=== PATIENT | female | born 1990 | race Caucasian/White ===

== ENCOUNTER 2016-02-29 08:00 | Outpatient (CLI) | END 2016-02-29 08:01 | disposition home or self-care (01) ==

== ENCOUNTER 2016-04-03 07:33 | Outpatient (CLI) | payer BC | END 2016-04-03 07:34 | disposition home or self-care (01) | DX: Z34.82 Encounter for supervision of other normal pregnancy, second trimester (principal) ==

== ENCOUNTER 2016-05-19 08:06 | Outpatient (CLI) | payer BC | END 2016-05-19 08:07 | disposition home or self-care (01) | DX: Z36 Encounter for antenatal screening of mother (principal) ==

== ENCOUNTER 2016-05-29 07:52 | Outpatient (CLI) | payer BC | END 2016-05-29 07:53 | disposition home or self-care (01) | DX: R73.02 Impaired glucose tolerance (oral) (principal) ==

== ENCOUNTER 2016-06-23 09:00 | Outpatient (CLI) | payer BC | END 2016-06-23 09:01 | disposition home or self-care (01) | DX: Z71.3 Dietary counseling and surveillance (principal); O24.410 Gestational diabetes mellitus in pregnancy, diet controlled; Z68.26 Body mass index [BMI] 26.0-26.9, adult ==

== ENCOUNTER 2016-07-25 05:08 | Outpatient (CLI) | payer BC ==
[2016-07-25 05:24] VITALS: BP 116/78
== END 2016-07-25 06:00 | disposition home or self-care (01) ==
LOC: WFO 05:08 → OB 05:09 → WFO 06:00
PROVIDERS: ATTEND Obstetrics & Gynecology
DX: Z34.03 Encounter for supervision of normal first pregnancy, third trimester (principal); Z36 Encounter for antenatal screening of mother
CPT/HCPCS: 87081; 87797; 99212

== ENCOUNTER 2016-07-25 15:00 | Outpatient (CLI) | payer BC | END 2016-07-25 15:01 | disposition home or self-care (01) | LOC: LAB.R 15:00 | PROVIDERS: ATTEND Obstetrics & Gynecology | DX: Z36 Encounter for antenatal screening of mother (principal) | CPT/HCPCS: 87081; 87797 ==

== ENCOUNTER 2016-08-14 10:47 | Outpatient (CLI) | payer BC ==
[2016-08-14 13:35] LABS: HEMOGLOBIN A1C 0.41 g/dL
== END 2016-08-14 10:48 | disposition home or self-care (01) ==
LOC: LAB 10:47
PROVIDERS: ATTEND Obstetrics & Gynecology
DX: O24.410 Gestational diabetes mellitus in pregnancy, diet controlled (principal)
CPT/HCPCS: 36415; 83036

== ENCOUNTER 2016-08-18 07:23 | Outpatient (CLI) | payer BC ==
[2016-08-18 09:59] VITALS: BP 111/69
== END 2016-08-18 10:35 | disposition home or self-care (01) ==
LOC: WFO 07:23 → OB 07:26 → WFO 10:35
PROVIDERS: ATTEND Obstetrics & Gynecology
DX: Z34.83 Encounter for supervision of other normal pregnancy, third trimester (principal)
CPT/HCPCS: 99213

== ENCOUNTER 2016-08-23 07:30 | Inpatient (IN) | payer BC ==
[2016-08-23] MEDS ORDERED: fentaNYL 100 MCG/2 ML VIAL IVP PRN (08:07)
[2016-08-23] MEDS ORDERED: SODIUM CHLORIDE FLUSH 0.9% 10 ML SYRINGE IVP PRN (08:07)
[2016-08-23] MEDS ORDERED: ACETAMINOPHEN 325 MG TABLET PO PRN (08:07)
[2016-08-23] MEDS ORDERED: ONDANSETRON 4 MG/2 ML VIAL IVP PRN ×2 (08:07→15:06)
[2016-08-23] MEDS ORDERED: ROPIVACAINE 0.2% PF 20 ML AMPULE SUBQ ONE (08:45)
[2016-08-23] MEDS: LACTATED RINGERS 1,000 ML IV SCH ×2 (08:57→14:53)
[2016-08-23 09:00] LABS: BASOPHILS # (AUTO) 0.1 10^3/uL (0.0-0.1); EOSINOPHILS # (AUTO) 0.3 10^3/uL (0.0-0.7); EOSINOPHILS % (AUTO) 3.7 %; HCT - HEMATOCRIT 31.8 % (37.0-47.0); HGB - HEMOGLOBIN 10.8 g/dL (12.0-16.0); LYMPHOCYTES # (AUTO) 1.9 10^3/uL (1.5-3.5); LYMPHOCYTES % (AUTO) 20.9 %; MEAN CORPUSCULAR HEMOGLOBIN 30.7 pg (27.0-31.0); MEAN CORPUSCULAR HGB CONC 33.9 g/dL (32.0-36.0); MEAN CORPUSCULAR VOLUME 90.4 fL (81.0-99.0); MEAN PLATELET VOLUME 7.3 fL (7.9-10.8); MONOCYTES # (AUTO) 0.6 10^3/uL (0.0-1.0); NEUTROPHILS % (AUTO) 67.4 %; RED BLOOD COUNT 3.52 10^6/uL (4.20-5.40); RED CELL DISTRIBUTION WIDTH 13.9 % (12.0-15.0); UNCORRECTED WHITE BLOOD COUNT 8.9 x10^3/uL; WHITE BLOOD COUNT 8.9 x10^3/uL (4.8-10.8)
[2016-08-23] MEDS ORDERED: OXYTOCIN/LACTATED RINGERS 250 ML IV SCH (10:00)
--- NOTE | 2016-08-23 11:07 | PROVIDER PROGRESS NOTE ---
Labor Progress Note - Instructions [place]/Slash: -Left hand click circles element as positive or present. -Right hand click slashes element as negative or not present. - Uterine Monitoring Uterine Monitoring Mode: positive: External toco Contraction Frequency (min/apart): Q6 min Contraction Intensity: positive: Mild to moderate Uterine Resting Tone: positive: Soft - Monitoring Heart Rate Baseline: 145 Heart Rate Variability: positive: Moderate (6-25 bmp) Accelerations: positive: Present, 10x10 (=/32 wks) Decelerations: positive: None Strip Review: positive: Category I - Vaginal Exam Dilation (in cm): 5 Effacement (%): 50% Station: positive: 0 Cervical Position: positive: Posterior - Labor Progress Note Labor Progress Note/Additional Text: AROM Clear fluid; Contractions inadequate and will start Pitocin Augmentation
--- NOTE | 2016-08-23 13:24 | PROVIDER PROGRESS NOTE ---
Labor Progress Note - Instructions [place]/Slash: -Left hand click circles element as positive or present. -Right hand click slashes element as negative or not present. - Uterine Monitoring Uterine Monitoring Mode: positive: External toco Contraction Frequency (min/apart): Q3-4min Contraction Intensity: positive: Moderate Uterine Resting Tone: positive: Soft - Monitoring Monitor Mode: positive: External ultrasound Heart Rate Baseline: 125 Heart Rate Variability: positive: Moderate (6-25 bmp) Accelerations: positive: Present, 15x15 Decelerations: positive: None Strip Review: positive: Category I - Vaginal Exam Dilation (in cm): 5 Effacement (%): 100% Station: positive: 1 Cervical Position: positive: Anterior - Labor Progress Note Labor Progress Note/Additional Text: Approaching Active Phase
[2016-08-23] MEDS ORDERED: SODIUM CHLORIDE FLUSH 0.9% 10 ML SYRINGE IVP SCH (14:00)
[2016-08-23] MEDS ORDERED: fent/BUPIV 2 MCG/0.125% 250 ML EP ONE (14:46)
[2016-08-23] MEDS ORDERED: NALBUPHINE 20 MG/ML AMP IVP PRN (15:06)
[2016-08-23] MEDS ORDERED: NALOXONE 0.4 MG/ML VIAL IVP PRN (15:06)
[2016-08-23] MEDS ORDERED: ePHEDrine 50 MG/ML AMP IVP PRN (15:06)
[2016-08-23] MEDS ORDERED: diphenhydrAMINE INJ 50 MG/ML VIAL IVP PRN (15:06)
[2016-08-23] MEDS ORDERED: LACTATED RINGERS 500 ML IV ONE (15:06)
[2016-08-23] MEDS ORDERED: METOCLOPRAMIDE 10 MG/2 ML VIAL IVP PRN (15:06)
[2016-08-23] MEDS ORDERED: fent/BUPIV 2 MCG/0.125% 250 ML EP PRN (15:06)
[2016-08-23] MEDS ORDERED: LIDOCAINE 1% 50 ML MDV ONE (16:08)
[2016-08-23] MEDS ORDERED: MINERAL OIL LIGHT 10 ML MC ONE (16:08)
--- NOTE | 2016-08-23 17:50 | HISTORY & PHYSICAL EXAMINATION ---
DATE OF ADMISSION: 08/23/2016 DIAGNOSES: 1. A 40-week 3 day gestation. 2. Planned induction. 3. Gestational diabetes (diet controlled, class A1 diabetes in ). 4. Rubella nonimmune. The patient is a 26-year-old prima at 40 weeks and 3 days gestation based on early ultrasound who has had regular care at the [facility] [place]. She is a known gestational diabetic and has followed diet and exercise protocol and maintained good blood glucose control. Her fasting and postprandial values are consistently on target Fasting below 90 , 2h PP less than 120), as well as her hemoglobin A1c. She was seen yesterday by Dr. Andres and found to have an inducible cervix approximately 3 cm dilated and well effaced. Basic obstetric labs, blood type A positive, antibody screen negative, GC, chlamydia negative. Quad screen negative. Hepatitis B surface antigen negative , HIV negative. Urinalysis negative. RPR negative. Glucola challenge elevated 1 of 52; 3-hour GTT elevated (86, 201, 177, 125). GBS negative. Reviewed chart. PAST MEDICAL HISTORY: History of benign heart murmur, anxiety secondary to college hepatitis B vaccine. No abnormal Pap or STD history. PAST SURGICAL HISTORY: None. MEDICATIONS: vitamins and iron. Diabetic testing supplies. FAMILY HISTORY: No history of congenital anomalies, unexplained retardation or inheritable diseases. SOCIAL HISTORY: Happily . Software Development Leader. No tobacco or alcohol use. REVIEW OF SYSTEMS: CONSTITUTIONAL: Negative. HEENT: Negative. LUNGS: Negative. CARDIAC: Negative. GI: Negative. BREASTS: Negative. MUSCULOSKELETAL: Negative. NEUROLOGIC: Negative. SKIN: Negative. PHYSICAL EXAMINATION: GENERAL: Patient lying comfortably in bed, contractions on monitor. No distress. HEENT: Supple neck. Moist mucous membranes. No thyromegaly. LUNGS: Clear to auscultation. CARDIAC: Regular. No significant murmur, no gallop. ABDOMEN: No hepatosplenomegaly, no liver tenderness. UTERUS: Estimated weight 7-1/2 pounds, vertex presentation, mild contractions corresponding to [place]. External monitor baseline 150, moderate variability, no decelerations. Contractions every 4 to 5 minutes. CERVIX: 3 cm, 70-80% effaced, -1 to 2 station (Dr. Andres's baseline exam). ASSESSMENT: This is a 26-year-old prima with an inducible cervix, Courtney score over 9. Rajat's finds the not to be macrosomic, probably between 7-1/2 and 8 pounds EFW. Tracing is category. Currently samantha and possibly latent phase of labor. PLAN: 1. Admit 2. Augment if required JOB #: [id number] EXT JOB #:[id number] [facility]
--- NOTE | 2016-08-23 20:02 | PROVIDER PROGRESS NOTE ---
Labor Progress Note - Instructions [place]/Slash: -Left hand click circles element as positive or present. -Right hand click slashes element as negative or not present. - Uterine Monitoring Uterine Monitoring Mode: positive: External toco Contraction Frequency (min/apart): Q2.5 -3 min Contraction Intensity: positive: Moderate Uterine Resting Tone: positive: Soft - Monitoring Monitor Mode: positive: External ultrasound Heart Rate Baseline: 125 Heart Rate Variability: positive: Moderate (6-25 bmp) Accelerations: positive: Present, 15x15 Decelerations: positive: None Strip Review: positive: Category I - Vaginal Exam Dilation (in cm): 9 Effacement (%): 100% Station: positive: 3 Cervical Position: positive: Anterior (Allowing patient to labor down and anticipate completion soon.)
[2016-08-24] MEDS ORDERED: OXYTOCIN/LACTATED RINGERS 250 ML IV ONE
[2016-08-24] MEDS ORDERED: WITCH HAZEL/GLYCERIN 1 EACH MED..PAD TOP PRN
[2016-08-24] MEDS ORDERED: diphenhydrAMINE 25 MG CAPSULE PO PRN
[2016-08-24] MEDS ORDERED: LACTATED RINGERS 1,000 ML IV SCH
[2016-08-24] MEDS: LIDOCAINE 1% 50 ML MDV ONE ×2 (00:11→00:12)
--- NOTE | 2016-08-24 00:13 | DELIVERY NOTE ---
Delivery Note - Instructions [place]/Slash: -Left hand click circles element as positive or present. -Right hand click slashes element as negative or not present. - Labor Labor: positive: Augmented by ARM, Augmented by oxytocin - Infant Delivery Method Delivery Method: positive: Vacuum assist, Other (David Forceps applied but due to asyncitism application abandoned) - Presentation Presentation: positive: Vertex, ROP - right occiput posterior (ROP in Stage2 that was manually rotated to OA) - Nuchal Cord Nuchal Cord: positive: None - Anesthetic Anesthetic Type: Anesthetic: positive: Bupivicaine - 0.25% plain Volume: positive: Other (20cc) - Amniotic Fluid Description Amniotic Fluid Description: positive: Clear - Vacuum Use Indication for Vacuum Use: positive: Shortening of 2nd stage for maternal benefit Type of Vacuum Cup: positive: Cup: Rigid (Kiwi) Vacuum Extraction: positive: Successful Number of pop-offs: 2 - Episiotomy Type Episiotomy Type: positive: Right mediolateral - Laceration Laceration: positive: 3rd degree (Partial -- Torn superior capsulle only no tears of muscle) - Suture Suture Type: positive: Chromic Suture Size: positive: 2-0, 3-0 - Delivery Outcome Delivery Outcome: positive: Livebirth - [place]: positive: Placed in direct skin contact with mother, Other (Dr Uribe in attendance, See her eval) [place] sex: positive: Male - Cord Cord: positive: 2 vessels - Placenta Placenta: positive: Intact, Spontaneous, Other (Grade 3) - Estimated Blood Loss Estimated Blood Loss (in cc): 450 - Delivery Comments (Free Text/Narrative) Delivery Comments (Free Text/Narrative): w = 8lbs 13 oz 8/8
[2016-08-24] MEDS: HYDROCORTISONE/PRAMOXINE 10 GM PR PRN ×2 (00:26→10:29)
[2016-08-24] MEDS: IBUPROFEN 800 MG TABLET PO SCH ×4 (00:26→18:07)
[2016-08-24] MEDS: oxyCOD/ACETAMIN 5 MG/325 MG TABLET PO PRN ×4 (00:26→20:48)
[2016-08-24] MEDS ORDERED: miSOPROStol 200 MCG TABLET PR SCH (00:36)
[2016-08-24] MEDS ORDERED: miSOPROStol 200 MCG TABLET ONE (05:45)
[2016-08-24] MEDS: DOCUSATE SODIUM 100 MG CAPSULE PO SCH ×2 (08:25→20:48)
[2016-08-24] MEDS ORDERED: DOCUSATE SODIUM 100 MG CAPSULE PO SCH (09:00)
[2016-08-24 09:02] LABS: BASOPHILS # (AUTO) 0.1 10^3/uL (0.0-0.1); BASOPHILS % (AUTO) 0.6 %; EOSINOPHILS # (AUTO) 0.1 10^3/uL (0.0-0.7); EOSINOPHILS % (AUTO) 0.5 %; HCT - HEMATOCRIT 26.5 % (37.0-47.0); LYMPHOCYTES # (AUTO) 1.5 10^3/uL (1.5-3.5); LYMPHOCYTES % (AUTO) 12.6 %; MEAN CORPUSCULAR HEMOGLOBIN 30.7 pg (27.0-31.0); MEAN CORPUSCULAR VOLUME 90.2 fL (81.0-99.0); MONOCYTES # (AUTO) 0.6 10^3/uL (0.0-1.0); MONOCYTES % (AUTO) 5.2 %; NEUTROPHILS # (AUTO) 9.9 10^3/uL (1.5-6.6); NEUTROPHILS % (AUTO) 81.1 %; NUCLEATED RED BLOOD CELLS AUTO 0.1 /100WBC; RED BLOOD COUNT 2.93 10^6/uL (4.20-5.40); RED CELL DISTRIBUTION WIDTH 13.7 % (12.0-15.0); UNCORRECTED WHITE BLOOD COUNT 12.3 x10^3/uL; WHITE BLOOD COUNT 12.3 x10^3/uL (4.8-10.8)
--- NOTE | 2016-08-24 09:29 | OPERATIVE REPORT ---
DATE OF SURGERY: 08/24/2016 00:00:00 PREDELIVERY DIAGNOSES 1. A 40-week 3-day gestation. 2. Gestational diabetes, diet controlled (class A1 diabetes in ). 3. Rubella immune. 4. Right occiput posterior presentation in second stage of labor. 5. Maternal fatigue. 6. Maternal temperature 38 degrees C spike. POSTDELIVERY DIAGNOSES 1. Occiput anterior presentation with significant Asynclitism 2. Partial third-degree laceration. 3. Grade 3 placenta. NAME OF PROCEDURES 1. Manual rotation from right occiput posterior to occiput anterior. 2. Low vacuum delivery over right mediolateral episiotomy. 3. Repair of episiotomy and partial third-degree laceration. SUSTAINABLE SYSTEMS ANALYST: Terrence You MD, FACOG, FICS ANESTHESIA: Cheyenne Telles MD; epidural. Dr. You, 20 ml of 0.25% Marcaine. INJECTION MOLDING MACHINE OFFBEARER: Brenda Randall MD (Peds) COMPLICATIONS: Third-degree laceration. ESTIMATED BLOOD LOSS: 450 mL. DRAINS: Salmon catheter inserted with clear urine. FINDINGS: At 2258 hours, a living male was born weighing 8 pounds 13 ounces, and scoring Apgars of 8 and 9. Arterial cord pH 7.18, arterial base excess -8; venous cord pH 7.22. There was a marked amount of caput. The majority of the caput was over the left parietal area, indicative of the degree of asynclitism. Dr. Randall is currently investigating the infant for transposition of great vessels. Reference her report. The placenta was delivered intact with 3-vessel cord configuration. There was no cord entanglement. The placenta had deep furrows and calcification. There was no foul smell or evidence of infection. Detailed inspection of the female genital tract found no lacerations of the cervix. There was a 3.5 cm vaginal wound and a corresponding 4 cm perineal wound from the episiotomy. The superior portion of the external anal sphincter was disrupted; however, the muscle layer underneath was intact. Rectal exam was done to ensure that there were no hidden rectovaginal openings. TECHNIQUE: The patient reached completion at 8:45. She began pushing with good effort. She pushed initially with the birthing bar in bed. She then pushed in the conventional dorsolithotomy position. She pushed in the left lateral position. The examination found the head to be ROP. The pelvis was assessed and there was no contraction along the obstetrical diameter, spines were blunt, and there was adequate bituberous diameter. With several pushes, the presentation was rotated to the OA. She successfully brought the head to the +2 and slowly to the +3 station. We pushed using birthing bar in a squat position for several minutes. The patient pushed for roughly 2 hours before she started to become exhausted. The low vacuum was explained to the patient in detail including mechanics, risks and benefits. She consented to the same. Prior to applying the vacuum, we notified Pediatrics and Dr. Randall came to the room for the delivery. Anesthesia and OR crew was likewise alerted. The vacuum was applied to the flexion point. There was some suspicion of asynclitism. The patient began to push and the Kiwi vacuum applied, pumped to the green zone and an appropriate amount of traction placed to respect the pelvic curvature. Initial placement popped off. Next, there were 2 other placements and there was sensation of the head descending slightly. Between Kiwi application 4 & 5, David-Vera forceps were brought to the field. The rotation of the head was ascertained by suture lines and found to be 15 degrees off of OA . The right blade and then the left blade were applied, but there was a degree of asynclitism that made safe application uncertain. Both blades were then removed. The patient pushing could bring the head to the perineum but the perineum was swollen and lacked pliability. With the patient's permission, episiotomy was done. Lidocaine 1%, 15 mL, was placed. The patient pushed with good effort and vacuum again applied. The head moved downward. Asynclitism impeded downward descent and by the final applications the had crowned. Shoulders were delivered without difficulty, and the placed on the maternal abdomen. Dr. Randall was in immediate attendance. Cord was doubly clamped and transected. Cord blood and cord gases were sent. The episiotomy wound was carefully inspected with bright light and assistance from nursing. Fentanyl 50 mcg IVP was given and an additional 15 cc of 1% Lidocaine, There was no extension of the vaginal portion nor of the perineal skin portion. The superior portion of the external anal sphincter capsule was torn. There was minimal involvement of the underlying muscle. First we repaired the capsule muscle with interrupted stitches of 3-0 Vicryl. The vaginal tube was reconstructed with a running interlocked stitch of 2-0 chromic. [place] stitches were placed with 0 Vicryl. Deep space was closed with interrupted stitches of 0 Vicryl. Skin was closed with multiple interrupted vertical mattress stitches of 3-0 Vicryl. After the repair, rectal exam was performed to ensure that there was no occult extension of the wound or intraluminal sutures. Placenta was delivered spontaneously intact. Immediately post-delivery, there was gushing blood flow with clots. Pitocin and uterine massage was begun. Cytotec 800 mcg was placed per rectum. The uterus responded well and bleeding subsided. Mother and child and father all bonded well. She had a Salmon catheter placed for rest as well as foot pumps. She received 50 mcg of fentanyl during the repair to help ease pain. At the end of the repair, a total of 20 mL of 0.25% Marcaine were injected into the wound subcutaneously. JOB #: [id number] EXT JOB #:[id number] DAVID
--- NOTE | 2016-08-24 10:52 | PROVIDER PROGRESS NOTE ---
Subjective - General Admit Date: 08/23/16 Procedure Date: 08/23/16 Post Op Days: 1 Procedure Performed: Vacume Delivery - Review of Systems Wound/Incisions: positive: Healing well Drain Type: None General: positive: No symptoms HEENT: positive: No symptoms Pulmonary: positive: No symptoms Cardiovascular: positive: No symptoms Gastrointestinal: positive: No symptoms Genitourinary: positive: Other (Nonfoul Lochia Rubra; Swelling less post ice packs) Musculoskeletal: positive: No symptoms Skin: positive: No symptoms Psychiatric: positive: No symptoms (Calm, Appropriate) Objective - Patient Data Vital Signs: Vital Signs x48h Temp Pulse Resp BP Pulse Ox 08/24/16 08:45 98.2 F 92 16 120/71 99 08/24/16 04:00 98.6 F 76 18 106/58 L Weight: Weight 08/22/16 08/23/16 08/24/16 23:59 23:59 23:59 Weight (kg) 78.471 kg Intake & Output: Intake and Output Totals x24h 08/22/16 08/23/16 08/24/16 23:59 23:59 23:59 Intake Total 2316 1500 Output Total 2300 1950 Balance 16 -450 - Lab Results Lab Results: 08/24/16 08:53 Other Lab Results: Lab Results x24hrs 08/24/16 Range/Units 08:53 WBC 12.3 H (4.8-10.8) x10^3/uL RBC 2.93 L (4.20-5.40) 10^6/uL Hgb 9.0 L (12.0-16.0) g/dL Hct 26.5 L (37.0-47.0) % MCV 90.2 (81.0-99.0) fL MCH 30.7 (27.0-31.0) pg MCHC 34.0 (32.0-36.0) g/dL RDW 13.7 (12.0-15.0) % Plt Count 186 (130-450) 10^3/uL MPV 7.0 L (7.9-10.8) fL Neut # 9.9 H (1.5-6.6) 10^3/uL Lymph # 1.5 (1.5-3.5) 10^3/uL [place] # 0.6 (0.0-1.0) 10^3/uL Eos # 0.1 (0.0-0.7) 10^3/uL Baso # 0.1 (0.0-0.1) 10^3/uL Absolute Nucleated RBC 0.01 x10^3/uL Nucleated RBCs 0.1 /100WBC - Current Medications Current Medications: Current Medications Generic Name Dose Route Start Last Admin Trade Name Freq PRN Reason Stop Dose Admin Docusate Sodium 200 mg 08/24/16 09:00 08/24/16 08:25 Colace 100mg Capsule PO 200 mg BID MAYRA Administration Hydrocortisone/Pramoxine 1 spray 08/24/16 00:00 08/24/16 10:29 Epifoam GA 1 spray QID PRN Administration Hemorrhoids Ibuprofen 800 mg 08/24/16 00:00 08/24/16 06:01 Motrin PO 800 mg Q6H MAYRA Administration Oxycodone/Acetaminophen 1 tab 08/24/16 00:00 08/24/16 00:26 Percocet 5 Mg/325 Mg PO 1 tab Q4HR PRN Administration PAIN Witch Soumya/Glycerin 1 each 08/24/16 00:00 08/24/16 00:26 Tucks TOP 1 each QID PRN Administration Hemorrhoids Exam - Exam Vital Signs: Vital Signs (72 hours) 08/23/16 08/23/16 08/24/16 07:59 23:46 00:16 Temperature 98.1 F Heart Rate [ 103 H 91 96 Monitoring electrodes] Respiratory 17 22 20 Rate Blood Pressure 118/87 H 129/79 122/75 [Left Brachial artery] O2 Saturation 98 08/24/16 08/24/16 08/24/16 00:31 00:46 01:01 Temperature 99.5 F Heart Rate [ 92 87 90 Monitoring electrodes] Respiratory 20 18 18 Rate Blood Pressure 115/74 122/77 126/73 [Left Brachial artery] O2 Saturation 08/24/16 08/24/16 08/24/16 01:16 01:31 04:00 Temperature 98.6 F Heart Rate [ 97 91 76 Monitoring electrodes] Respiratory 18 18 18 Rate Blood Pressure 114/73 111/68 106/58 L [Left Brachial artery] O2 Saturation 08/24/16 08:45 Temperature 98.2 F Heart Rate [ 92 Monitoring electrodes] Respiratory 16 Rate Blood Pressure 120/71 [Left Brachial artery] O2 Saturation 99 General: Alert, Oriented x3, Cooperative, No acute distress HEENT: Mucous membr. moist/pink Abdomen: Normal bowel sounds, Soft, Other (Uterus 17 weeks Firm & NT; Vaginal Exam: Epis sutures intact no massor hematoma, Mild Labial Edema) Extremities: No edema Psych/Mental Status: Mental status NL Assessment/Plan - Assessment/Plan Assessment: Recovering Well from insturmental delivery. Mild anemia Hbg 9 but well compensated. She will require supportive care for 2-3 more days
[2016-08-24] MEDS ORDERED: MAGNESIUM HYDROXIDE 2,400 MG/30 ML UDC PO ONE (11:00)
[2016-08-24] MEDS ORDERED: MAGNESIUM HYDROXIDE 2,400 MG/30 ML UDC PO SCH (16:00)
[2016-08-25] MEDS: IBUPROFEN 800 MG TABLET PO SCH ×3 (00:07→11:40)
[2016-08-25] MEDS: oxyCOD/ACETAMIN 5 MG/325 MG TABLET PO PRN ×3 (01:15→11:42)
[2016-08-25] MEDS ORDERED: DOCUSATE SODIUM 250 MG CAPSULE PO SCH (09:00)
[2016-08-25 09:12] VITALS: BP 107/74
[2016-08-25] MEDS: HYDROCORTISONE/PRAMOXINE 10 GM PR PRN (11:40)
[2016-08-25] MEDS: DOCUSATE SODIUM 100 MG CAPSULE PO SCH (11:40)
--- NOTE | 2016-08-25 12:17 | PROVIDER PROGRESS NOTE ---
Subjective - General Admit Date: 08/23/16 Procedure Date: 08/23/16 Post Op Days: 2 Procedure Performed: Vacume Delivery - Review of Systems Wound/Incisions: positive: Healing well Drain Type: None General: positive: No symptoms (episiotomy pain 04/07) HEENT: positive: No symptoms Pulmonary: positive: No symptoms Cardiovascular: positive: No symptoms Gastrointestinal: positive: No symptoms Genitourinary: positive: Other (Nonfoul Lochia Rubra; Swelling less post ice packs) Musculoskeletal: positive: No symptoms Skin: positive: No symptoms Psychiatric: positive: No symptoms (Calm, Appropriate) Objective - Patient Data Reviewed Vital Signs: Yes Vital Signs: Vital Signs x48h Temp Pulse Resp BP Pulse Ox 08/25/16 09:10 36.6 C 85 14 107/74 100 Weight: Weight 08/23/16 08/24/16 08/25/16 23:59 23:59 23:59 Weight (kg) 78.471 kg Intake & Output: Intake and Output Totals x24h 08/23/16 08/24/16 08/25/16 23:59 23:59 23:59 Intake Total 2316 1500 300 Output Total 2300 1950 Balance 16 -450 300 - Lab Results Lab Results: 08/24/16 08:53 - Current Medications Current Medications: Current Medications Generic Name Dose Route Start Last Admin Trade Name Freq PRN Reason Stop Dose Admin Docusate Sodium 200 mg 08/24/16 09:00 08/25/16 11:40 Colace 100mg Capsule PO 200 mg BID MAYRA Administration Hydrocortisone/Pramoxine 1 spray 08/24/16 00:00 08/25/16 11:40 Epifoam GA 20 spray QID PRN Administration Hemorrhoids Ibuprofen 800 mg 08/24/16 00:00 08/25/16 11:40 Motrin PO 800 mg Q6H MAYRA Administration Oxycodone/Acetaminophen 1 tab 08/24/16 00:00 08/25/16 11:42 Percocet 5 Mg/325 Mg PO 1 tab Q4HR PRN Administration PAIN Witch Soumya/Glycerin 1 each 08/24/16 00:00 08/24/16 00:26 Tucks TOP 1 each QID PRN Administration Hemorrhoids - Physical Exam Wound/Incisions: positive: Healing well General Appearance: positive: No acute distress, Alert Respiratory: positive: Chest non-tender, No respiratory distress, Breath sounds nml Cardiovascular: positive: Regular rate & rhythm, No murmur, No gallop Abdomen: positive: Non-tender, Mass (U-1) Skin: positive: Color nml Extremities: negative: Calf tenderness, Tyler's sign/cords Neurologic/Psychiatric: positive: Oriented x3 Impression/Plan - Problem List Problem List: Post delivery #2 doing well
--- NOTE | 2016-08-25 14:24 | Labor Flowsheet ---
Labor Flowsheet Datetime Report Generated by CPN: 08/25/2016 14:24 Datetime: 08/25/2016 08:56 VITAL SIGNS NBP Sys/Sondra/Mean (mmHg): 107 : 74 : 81 Pulse: 83 COMMUNICATION LaborFlag: Labor Datetime: 08/23/2016 22:45 Accelerations: None Datetime: 08/23/2016 22:30 UTERINE ACTIVITY Monitor Interventions for UA: [place] Adjusted Datetime: 08/23/2016 22:24 SpO2 (%): 96 Datetime: 08/23/2016 21:48 Temperature (C): 38.7 Temperature Route: Axillary Datetime: 08/23/2016 21:45 ASSESSMENT A FHR Baseline Changes: Tachycardia Datetime: 08/23/2016 21:30 Contraction Comments: Palpating contractions. Datetime: 08/23/2016 21:00 Pattern: Tachysystole: > 5 Contractions in 10 Minutes Datetime: 08/23/2016 20:45 Actions for Decelerations: Side to Side; Sterile Vaginal Exam VAGINAL EXAM Dilatation (cm): 10.0 Effacement (%): 100 Station: 3 Exam by: Dr Carrillo Datetime: 08/23/2016 20:28 Respirations: 16 Datetime: 08/23/2016 19:48 Membrane Status: Ruptured Amniotic Fluid Color: Clear Amniotic Fluid Amount: Small Amniotic Fluid Odor: Normal Vaginal Bleeding: Normal Show Datetime: 08/23/2016 19:39 Patient Position/Activity: HOB Lowered; Left Lateral Comfort Measures: Breathing/Relaxation; Family Support Datetime: 08/23/2016 19:22 MATERNAL ASSESSMENT Level of Consciousness: Fully Conscious Headache: Denies Breath Sounds, Left: Clear and Equal Breath Sounds, Right: Clear and Equal Nausea/Vomiting: Denies RUQ Epigastric Pain: Denies Datetime: 08/23/2016 19:13 Oxygen Method: Room Air Datetime: 08/23/2016 18:57 MEDICATIONS Pitocin (milliunits): Decreased to @ 2 Patient Care Comments: dr. carrillo called. report given about ctx. pit now down to 2 Datetime: 08/23/2016 18:51 Epidural Procedure Other: Single Dose Anesthesia Comments: at bedside Datetime: 08/23/2016 18:45 Temperature (F): 91.8 Temperature (C): 33.2 Datetime: 08/23/2016 18:23 Cervix, Consistency: Soft Cervix, Position: Anterior Datetime: 08/23/2016 17:38 I/O Interventions: Straight Cath (ml) @ 600 Datetime: 08/23/2016 17:08 Anesthesia Level Check: T10- Umbilicus Datetime: 08/23/2016 16:38 Pain Presence: None/Denies Pain Relief Measures: Comfort Measures Pain Coping: Breathing Through Contractions Pain Assessment Comments: denies pain at this time. resting off/on during ctx. no pressure feeling Datetime: 08/23/2016 14:58 PATIENT CARE IV/Blood Work: New IV Bag Hung Datetime: 08/23/2016 14:51 Epidural Procedure: Loading Dose Datetime: 08/23/2016 14:39 PROCEDURE TIME OUT Procedure Verify: Correct Patient Identity; Accurate Procedure Consent Form; Agreement on Procedure to be Done; Correct Patient Position ANESTHESIA Epidural Positioning: Sitting Datetime: 08/23/2016 13:49 PAIN Pain Scale: 6 Pain Type: Cramping; Pressure Pain Location: Abdomen; Perineum Datetime: 08/23/2016 12:30 Hygiene: Peripad Changed Datetime: 08/23/2016 11:00 Stage of : Labor Datetime: 08/23/2016 09:44 Membranes Rupture Method: Artificial Datetime: 08/23/2016 08:50 Pitocin Checklist: At Least 1 Acceleration of 15 bpm x 15 Seconds in 30 Minutes or Adequate Variabi lity; No More than 1 Late Deceleration Occurred in Past 30 Minutes; No More than 2 Variable Decelerat ions > 60 Seconds in Duration and decreasing >60 bpm in 30 minutes; No More than 5 Uterine Contractio ns in 10 Minutes for any 20 Minute Interval; Uterus Palpates Soft between Contractions
--- NOTE | 2016-08-27 10:05 | DISCHARGE SUMMARY ---
DATE OF ADMISSION: 08/23/2016 DATE OF DISCHARGE: 08/25/2016 ADMITTING DIAGNOSES 1. A 40-week 3-day gestation. 2. Gestational diabetes. 3. Planned induction. 4. Rubella nonimmune. DISCHARGE DIAGNOSES 1. A 40-week 3-day gestation. 2. Gestational diabetes. 3. Planned induction. 4. Rubella nonimmune. 5. Delivery, live , Apgars 8 and 8. Vacuum delivery, partial third-degree laceration. PRESENTING HISTORY: The patient is a 26-year-old, G1, P0 female who was 40 weeks 3 days based on early ultrasound and early visits. She developed gestational diabetes during her ; however, she had excellent control utilizing diet. She monitored her blood sugars, and the fastings were less than 90s, and her 2-hour postprandials less than 120s. She was seen in the clinic on the , at which time her cervix was 3 cm, as well as 80% effaced. For this reason, she presented for induction. LABORATORIES ON ADMISSION: Hemoglobin was 10.8 on admission, white count was 8.9 , and platelets were 228. First day her hemoglobin was 9.0, hematocrit was 26.5, platelets were 186, and white count was 12.3. HOSPITAL COURSE: The patient was admitted and started induction. She progressed well. She reached complete, and because the was felt to be occiput posterior, she had a rotation with David forceps. Because she was acynclitic, it was decided not to deliver her with forcepts and she had a vacuum placed and pulled with 2 pop-offs. The head delivered, and she had an episiotomy cut, which extended to a partial third. She had delivery of a live male with Apgars 8, 8, weighing 8 pounds 13 ounces. Estimated blood loss was 450 mL at time of delivery. Repare was accomplished with attention to the rectal capsula. Her course has been unremarkable. She is currently well controlled on pain medications. She is tolerating a regular diet, and the has been discharged to home. DISCHARGE MEDICATIONS She is being discharged with: 1. Motrin 800 mg. 2. Percocet 5/325. 3. Colace. 4. Iron sulfate Discussed issues about mastitis, as well as contraception and endometritis. Patient has been placed on pelvic rest for 6 weeks. She is instructed to follow up in the clinic in 6 weeks. JOB #: [id number] EXT JOB #:[id number] DAVID
== END 2016-08-25 13:45 | disposition home or self-care (01) | DRG 774 ==
LOC: OB 07:30
PROVIDERS: ADMIT Obstetrics & Gynecology; ATTEND Obstetrics & Gynecology
PROC: 10907ZC Drainage of Amniotic Fluid, Therapeutic from Products of Conception, Via Natural or Artificial Opening (ICD-10-PCS; 2016-08-23)
PROC: 10D07Z6 Extraction of Products of Conception, Vacuum, Via Natural or Artificial Opening (ICD-10-PCS; principal; 2016-08-24)
PROC: 0DQR0ZZ Repair Anal Sphincter, Open Approach (ICD-10-PCS; 2016-08-24)
PROC: 0W8NXZZ Division of Female Perineum, External Approach (ICD-10-PCS; 2016-08-24)
DX: O24.420 Gestational diabetes mellitus in childbirth, diet controlled (principal); O75.2 Pyrexia during labor, not elsewhere classified; O70.20 Third degree perineal laceration during delivery, unspecified; O64.0XX0 Obstructed labor due to incomplete rotation of fetal head, not applicable or unspecified; O75.81 Maternal exhaustion complicating labor and delivery; O90.81 Anemia of the puerperium; Z3A.40 40 weeks gestation of pregnancy; Z37.0 Single live birth
CPT/HCPCS: 36415; 51701; 59025; 85025

== ENCOUNTER 2016-10-04 14:05 | Outpatient (CLI) | payer BC | END 2016-10-04 14:06 | LOC: LAB.R 14:05 | PROVIDERS: ATTEND Obstetrics & Gynecology | DX: N89.9 Noninflammatory disorder of vagina, unspecified (principal) | CPT/HCPCS: 87480; 87510; 87660 ==

== ENCOUNTER 2016-11-21 08:48 | Outpatient (CLI) | payer BC | END 2016-11-21 08:49 | disposition home or self-care (01) | LOC: LAB 08:48 | PROVIDERS: ATTEND Obstetrics & Gynecology | DX: Z13.1 Encounter for screening for diabetes mellitus (principal) | CPT/HCPCS: 36415; 82947 ==